=== PATIENT | male | born 1960 | race Caucasian/White ===

== ENCOUNTER 2017-10-09 12:27 | Observation (INO) | payer OTHER ==
[~2017-10-09] VITALS: Ht 175.3 cm; Wt 99.7 kg
[~2017-10-09 12:27] MED LIST: DAILY VITE1 EAC1 PO; FISH OIL500 MG PO; LO-DOSE ASPIRIN81 M1 PO; ODOR FREE GARL1 EACH PO
[2017-10-09 13:00] LABS: EOSINOPHIL (%) 2.6 % (0-5); EOSINOPHIL COUNT 0.2 K/uL (0-0.3); HEMATOCRIT 45.7 % (38.0-50.0); IMMATURE GRANULOCYTE (%) 0.5 % (0.0-0.7); INSTRUMENT ABS NEUTROPHIL CT 5.8 K/uL; LYMPHOCYTE COUNT 1.9 K/uL (1.0-2.8); MCH 29.9 PG (29.0-34.0); MCHC 33.3 G/DL (30.0-36.0); MEAN PLAT.VOLUME 9.5 uM^3 (9.0-12.4); MONOCYTE (%) 8.9 % (3-12); MONOCYTE COUNT 0.8 K/uL (0-0.8); NEUTROPHIL (%) 66.3 % (45-76); NEUTROPHIL COUNT 5.8 K/uL (1.8-6.4); PLATELET COUNT 269 K/uL (156-360); RBC DIS.WIDTH-CV 12.3 % (11.8-14.6); RBC DIS.WIDTH-SD 40.8 % (39-53); RED BLOOD COUNT 5.08 M/uL (4.00-5.50); WHITE BLOOD COUNT 8.7 K/uL (4.1-10.2)
[2017-10-09 13:06] LABS: PROTHROMBIN TIME 11.3 SEC (10.2-12.9)
[2017-10-09 13:08] LABS: PTT 29.2 SEC (25-37)
[2017-10-09 13:16] LABS: Estimated Average Glucose 111 mg/dL (70-123); HEMOGLOBIN A1c (GLYCOHEMOGLOB) 5.5 % HGB (Below 5.7)
[2017-10-09 13:20] LABS: TROP-I INTERPRETATION NEGATIVE; TROPONIN-I < 0.01 ng/mL (0.0-0.30)
[2017-10-09 13:33] LABS: ADD MIUA? YES; BILIRUBIN NEGATIVE; BLOOD MODERATE; COLOR STRAW ((YELLOW)); GLUCOSE (STRIP) NEGATIVE; KETONES NEGATIVE; LEUKOCYTES NEGATIVE; NITRITE NEGATIVE; PROTEIN (STRIP) NEGATIVE; SPECIFIC GRAVITY 1.008 (1.000-1.030); UROBILINOGEN 0.2 MG/DL (0.2-1.0)
[2017-10-09 13:34] LABS: ANION GAP 7 MEQ/L (2-14); CHLORIDE 105 MEQ/L (99-109); SAMPLE HEMOLYSIS CHECK 1; SAMPLE ICTERIC CHECK 0; SAMPLE LIPEMIA CHECK 0; SODIUM 138 MEQ/L (136-147)
[2017-10-09 13:40] LABS: GFR ESTIMATE (CALCULATED) > 59 mL/min/ (58.99-99999); GLUCOSE 95 mg/dL (70-99); HDL CHOLESTEROL 53 MG/DL (Desirable>=40); LDL CHOLESTEROL 66 mg/dL (Desirable<100); NON-HDL CHOLESTEROL 118 mg/dL (Desirable<160); TOTAL CHOLESTEROL 171 mg/dL (Desirable<200); TRIGLYCERIDES 258 MG/DL (Normal: <150); UREA NITROGEN (BUN) 17 mg/dL (9-23)
[2017-10-09 13:44] LABS: BACTERIA RARE /HPF; EPITHELIAL CELLS NONE SEEN /HPF; MUCUS NONE SEEN /LPF; UCUL ADDED? NO; WHITE BLOOD CELLS 0-5 /HPF (0-5)
[2017-10-09] MEDS ORDERED: TUMERIC PO (16:17)
[2017-10-09] MEDS ORDERED: FISH OIL 1,0001 EAC7 PO (16:17)
[2017-10-09] MEDS ORDERED: CINNAMON500 MG PO (16:17)
[2017-10-09] MEDS ORDERED: CLARITIN,ALAVAR10 MG PO (16:17)
[2017-10-09] MEDS ORDERED: CAYENNE450 MG PO (16:18)
[2017-10-09 17:30] VITALS: BP 139/91
[2017-10-09 19:30] VITALS: BP 148/86
[2017-10-09 20:09] LABS: TROP-I INTERPRETATION NEGATIVE; TROPONIN-I < 0.01 ng/mL (0.0-0.30)
[2017-10-09 22:58] VITALS: BP 139/71
[2017-10-10 01:05] LABS: TROP-I INTERPRETATION NEGATIVE; TROPONIN-I < 0.01 ng/mL (0.0-0.30)
[2017-10-10 03:04] VITALS: BP 121/73
[2017-10-10 07:30] VITALS: BP 122/75
[2017-10-10 11:44] VITALS: BP 152/84
[2017-10-10 12:24] LABS: AMPHETAMINES QUANT VALUE 0 NG/ML; BARBITUATES QUANT VALUE 0 NG/ML; BENZODIAZEPINES QUANT VALUE 0 NG/ML; BENZODIAZEPINES, URINE SCREEN Negative (200 ng/mL); MARIJUANA QUANT VALUE 0 NG/ML; OPIATES QUANTITATIVE VALUE 0 NG/ML; PHENCYCLIDINE QUANT VALUE 0 NG/ML
[2017-10-10] MEDS ORDERED: ATORVASTATIN CA40 MG PO (12:34)
== END 2017-10-10 13:25 | disposition home or self-care (01) ==
LOC: EME 12:27 → EDOF 15:48 → ENRESERV 15:57 → 5WEST 17:13
PROVIDERS: Internal Medicine
DX: G45.4 Transient global amnesia (principal); R20.0 Anesthesia of skin; R51 Headache; Z82.3 Family history of stroke; R31.29 Other microscopic hematuria; E78.1 Pure hyperglyceridemia; Z79.82 Long term (current) use of aspirin; Z91.040 Latex allergy status
CPT/HCPCS: 70450; 70551; 71020; 80048; 80061; 80306 90; 81003; 83036; 84484; 85025; 85610; 85730; 93005; 93880; G0378; J1650